=== PATIENT | male | born 1955 | race Caucasian/White ===

== ENCOUNTER 2017-02-08 13:52 | Outpatient (CLI) | payer OTHER | END 2017-02-08 13:53 | LOC: CARD 13:52 | PROVIDERS: ATTEND Nurse Practitioner | DX: E78.5 Hyperlipidemia, unspecified (principal); I10 Essential (primary) hypertension | CPT/HCPCS: 99214 ==

== ENCOUNTER 2019-03-17 09:58 | Outpatient (CLI) | payer OTHER ==
[2019-03-31 15:29] LABS: HDL 35 mg/dL (>40); eGFR (Non-African) > 60
== END 2019-03-17 10:03 | disposition home or self-care (01) ==
LOC: LAB 09:58
PROVIDERS: ATTEND Family Medicine
DX: Z12.5 Encounter for screening for malignant neoplasm of prostate (principal)
CPT/HCPCS: 36415; 80053; 80061; 84153